=== PATIENT | female | born 1985 | race Two or more races ===

== ENCOUNTER 2019-03-07 00:41 | Emergency (ER) | payer MEDICAID ==
[2019-03-07] MEDS ORDERED: RINGERS SOLUTION,LACTATED 1,000 ML IV ONE (00:56)
[2019-03-07 01:30] LABS: ABSOLUTE BASOPHILS # (AUTO) 0.1 10^3/uL (0.0-0.2); ABSOLUTE EOSINOPHILS # (AUTO) 0.1 10^3/uL (0.0-0.6); ABSOLUTE MONOCYTES (AUTO) 0.7 10^3/uL (0.1-1.4); ABSOLUTE NEUT (AUTO) 4.8 10^3/uL (1.7-8.2); EOSINOPHILS % (AUTO) 1.3 % (0-6); HEMATOCRIT 41.9 % (36.0-47.0); HEMOGLOBIN 14.2 g/dL (12.0-15.5); LYMPHOCYTES % (AUTO) 46.3 % (13-45); MEAN CORPUSCULAR HEMOGLOBIN 30.3 pg (27.0-33.4); MEAN CORPUSCULAR VOLUME 89 fl (80-97); MONOCYTES % (AUTO) 6.5 % (3-13); PLATELET COUNT 333 10^3/uL (150-450); RED BLOOD COUNT 4.71 10^6/uL (3.72-5.28); RED CELL DISTRIBUTION WIDTH 12.6 % (11.5-14.0); SEGMENTED NEUTROPHILS % (AUTO) 44.9 % (42-78); TOTAL CELLS COUNTED % (AUTO) 100 %; WHITE BLOOD COUNT 10.8 10^3/uL (4.0-10.5)
[2019-03-07 01:51] LABS: ALBUMIN 4.8 g/dL (3.5-5.0); ALKALINE PHOSPHATASE 74 U/L (38-126); ANION GAP 11 (5-19); ASPARTATE AMINO TRANSFERASE 20 U/L (14-36); BILIRUBIN,TOTAL 0.5 mg/dL (0.2-1.3); BLOOD UREA NITROGEN 11 mg/dL (7-20); CALCIUM 10.1 mg/dL (8.4-10.2); CARBON DIOXIDE 25 mmol/L (22-30); CHLORIDE 104 mmol/L (98-107); GLUCOSE 130 mg/dL (75-110); POTASSIUM 3.6 mmol/L (3.6-5.0); TOTAL PROTEIN 7.9 g/dL (6.3-8.2)
[2019-03-07] MEDS ORDERED: LORAZEPAM INJ 2 MG/1 ML VIAL IV ONE (01:58)
--- NOTE | 2019-03-07 03:08 | RADIOLOGY REPORT (SQ) ---
EXAM DESCRIPTION: CT CHEST ANGIOGRAPHY WITHOUT THEN WITH IV CONTRAST COMPLETED DATE/TME: 03/07/2019 00:55 CLINICAL HISTORY: 34 years, Female, SOB, tachy eval PE COMPARISON: None. TECHNIQUE: 545 Images stored on PACS. All CT scanners at this facility use dose modulation, iterative reconstruction, and/or weight based dosing when appropriate to reduce radiation dose to as low as reasonably achievable (ALARA). Axial images with coronal and sagittal MIPS [facility]: Dose Right [facility]: CareDose [facility]: Dose Right [facility]: Teradose 4D [facility]: [employer] LIMITATIONS: None. FINDINGS: Contrast bolus is suboptimal. However no large or central pulmonary embolus. Evaluation of distal branches is nondiagnostic. Negative for thoracic aortic aneurysm or dissection. Heart and pericardium are unremarkable. Limited evaluation of upper abdomen unremarkable. Osseous structures are grossly intact. No pneumothorax. Airways are patent. Lungs are clear IMPRESSION: Suboptimal contrast bolus. No large or central PE. Lungs are clear TECHNICAL DOCUMENTATION: Quality ID # [id number]: Final reports with documentation of one or more dose reduction techniques (e.g., Automated exposure control, adjustment of the mA and/or kV according to patient size, use of iterative reconstruction technique) copyright 2010 [employer] [facility] [employer]- All Rights Reserved
[2019-03-07 05:37] VITALS: BP 123/74
--- NOTE | 2019-03-07 07:24 | EKG REPORT ---
SEVERITY:- BORDERLINE ECG - SINUS TACHYCARDIA NONSPECIFIC INFERIOR ST-T CHANGES : Confirmed by: Mason Parmar MD 07-Mar-2019 07:23:34
--- NOTE | 2019-03-09 10:21 | ER Document Report ---
Entered by JASMYN CAMARGO SCRIBE 03/07/19 0100 Acting as scribe for:TREU CABRALES MD ED General - General Chief Complaint: Shortness Of Breath Stated Complaint: SHORTNESS OF BREATH, PALPITATIONS Time Seen by Provider: 03/07/19 00:54 Primary Care Provider: [facility] [NO LOCAL MD] - Follow up in 3-5 days Notes: Patient is a 31-year-old female that presents to the emergency department today with complaints of shortness of breath, heart palpitations, headache, nausea, dizziness, and pain down her left arm. Patient states that all of these symptoms began at around 8 PM tonight. Patient states that she has had symptoms identical to this in the "years ago" but was never worked up for it. Patient denies any caffeine usage, recent long trips, leg swelling, history of cancer, or hormone usage. TRAVEL OUTSIDE OF THE [place] IN LAST 30 DAYS: No Past Medical History - General Information source: Patient - Social History Smoking Status: Never Smoker Cigarette use (# per day): No Chew tobacco use (# tins/day): No Drug Abuse: None Lives with: Family Family History: Reviewed & Not Pertinent Patient has suicidal ideation: No Patient has homicidal ideation: No Review of Systems - Review of Systems Constitutional: No symptoms reported EENT: No symptoms reported Cardiovascular: See HPI, Palpitations, Dizziness Respiratory: See HPI, Short of breath Gastrointestinal: See HPI, Nausea Genitourinary: No symptoms reported Female Genitourinary: No symptoms reported Musculoskeletal: denies: Leg swelling Skin: No symptoms reported Hematologic/Lymphatic: No symptoms reported Neurological/Psychological: See HPI, Headaches -: Yes All other systems reviewed and negative Physical Exam - Notes Notes: Physical Exam: General: Alert, appears well. HEENT: Normocephalic. Atraumatic. PERRL. Extraocular movements intact. Oropharynx clear. Neck: Supple. Non-tender. Respiratory: No respiratory distress. Clear and equal breath sounds bilaterally. Cardiovascular: Mildly tachycardic with occasional PVCs. Abdominal: Normal Inspection. Non-tender. No distension. Normal Bowel Sounds. Back: No gross abnormalities. Extremities: Moves all four extremities. Upper extremities: Normal inspection. Normal ROM. Lower extremities: Normal inspection. No edema. Normal ROM. Neurological: Normal cognition. AAOx4. Normal speech. Psychological: Normal affect. Normal Mood. Skin: Warm. Dry. Normal color. Course - Re-evaluation Re-evalutation: 03/07/19 01:59 Patient noted to have a respiratory rate of 13 with a pulse of 100 when not being started in the emergency department with 100% saturation on room air. Pending work-up at this time, we will also provide Ativan. HEART score of 3, low risk. 03/07/19 02:12 Upon further reevaluation with the patient she states approximately 5 years ago over the span of several months she had the same type of symptoms when she was living in [place]. She just recently moved here and does not have insurance. She states that she actually wore a Holter monitor and they did not find anything wrong with her. 03/07/19 02:17 03/07/19 02:43 She states her symptoms have improved with the Ativan administration. Pending CTA at this time. If negative will be discharged with community care follow-up and consideration of Holter monitor her symptoms continue. Labs within normal limits are nonsignificant. Negative troponin. Her symptoms started ap proximately 8 PM troponin was taking greater than 4 hours after the onset of her symptoms. Feeling only one troponin is sufficient to rule out ACS at this time combined with low risk heart score. - Laboratory Result Diagrams: 03/07/19 01:14 03/07/19 01:14 Laboratory results interpreted by me: 03/07/19 03/07/19 03/07/19 01:14 01:14 01:14 WBC 10.8 H Lymph % (Auto) 46.3 H Absolute Lymphs (auto) 5.0 H Glucose 130 H TSH 6.29 H - EKG Interpretation by Me EKG shows normal: Sinus rhythm Rate: Tachycardia Rhythm: NSR - No concerning ST depressions or elevations, normal axis, intervals within normal limits Discharge - Discharge Clinical Impression: Palpitation Condition: Good Disposition: HOME, SELF-CARE Instructions: Palpitations (Irregular or Rapid Heartrate) ([facility]) Additional Instructions: Return to the emergency department for any worsening symptoms or concerns. Please follow-up with community care clinic for consideration of Holter monitor symptoms continue but are intermittent. [facility]: [facility] [NO [facility]AL MD] - Follow up in 3-5 days I personally performed the services described in the documentation, reviewed and edited the documentation which was dictated to the scribe in my presence, and it accurately records my words and actions.
== END 2019-03-07 05:37 | disposition home or self-care (01) ==
LOC: ER 00:41
DX: R00.2 Palpitations (principal); R06.02 Shortness of breath; R51 Headache; R11.0 Nausea; R42 Dizziness and giddiness; M79.602 Pain in left arm
CPT/HCPCS: 93005; 99285; 36415; 84702; 83735; 84443; 85025; 80053; 84484; 71275; 93010; J2060; J7120